=== PATIENT | male | born 1960 | race Caucasian/White ===

== ENCOUNTER → 2024-03-24 16:02 | Outpatient (REF) | payer MEDICARE, BC, SELFPAY | LOC: RAD 16:02 | PROVIDERS: ATTENDING PHYSICIAN Orthopaedic Surgery Hand Surgery | DX: S46.011A Strain of muscle(s) and tendon(s) of the rotator cuff of right shoulder, initial encounter (principal) | CPT/HCPCS: 70030 ==

== ENCOUNTER 2024-07-14 14:13 | Inpatient (IN) | payer MEDICARE, BC, SELFPAY ==
[2024-07-14] VITALS (12 sets, daily range): BP systolic 102–156; BP diastolic 67–103; BMI 28.9
[2024-07-14 15:35] LABS: Hematocrit 43.8 % (39.0-52.0); Hemoglobin 15.4 g/dL (13.0-18.0); Mean Corp Hgb Conc. 35.2 g/dL (33.0-37.0); Mean Corpuscular Hgb 32.6 pg (27.0-31.0); Mean Corpuscular Volume 92.8 fL (80.0-94.0); Mean Platelet Volume 9.6 fL (7.4-10.4); Platelet Count 264 10^3/uL (130-400); Red Blood Cell Count 4.72 10^6/uL (4.70-6.10); Red Cell Dist. Width 11.7 % (11.5-14.5); White Blood Cell Count 8.5 10^3/uL (4.8-10.8)
[2024-07-14 15:37] LABS: ALT (SGPT) 15 U/L (0-50); AST (SGOT) 30 U/L (17-59); Albumin 4.6 g/dl (3.5-5.0); Alkaline Phosphatase 106 U/L (38-126); Blood Urea Nitrogen 18 mg/dl (9-20); Calcium 9.8 mg/dl (8.4-10.2); Carbon Dioxide 24 mmol/L (22-30); Chloride 106 mmol/L (98-107); Estimated Creatinine Clearance 77 ml/min; Glucose 111 mg/dl (70-99); Potassium 4.5 mmol/L (3.5-5.1); Sodium 143 mmol/L (135-145); Total Bilirubin 0.8 mg/dl (0.2-1.3); Total Protein 7.8 g/dl (6.3-8.2); eGFR > 60.00
[2024-07-14 15:41] LABS: Erythrocyte Sed Rate 27 mm/hour (0-20)
[2024-07-14] MEDS: DILAUDID 0.5 MG IV (19:35)
[2024-07-14] MEDS: VANCOCIN 540 MG IV (19:37)
[2024-07-14] MEDS: DILAUDID 0.25 MG IV (19:55)
--- NOTE | 2024-07-14 20:30 | PTCARENOTE ---
Pt a 64 y/o M arrived from PACU at 20:30 post-op I&D R Shoulder with Cadaver Graft PMH HTN, HLD. Pt AOx3, bed in a low position, call light in reach.
[2024-07-14] MEDS: HEPARIN 5000 UNITS SC (20:50)
[2024-07-14] MEDS: SENOKOT 17.2 MG PO (20:50)
[2024-07-14] MEDS: COLACE 100 MG PO (20:50)
[2024-07-14] MEDS: ROXICODONE 10 MG PO (21:03)
[2024-07-15] MEDS: TYLENOL 650 MG PO ×7 (00:32→23:35)
[2024-07-15 03:10] VITALS: BP 110/69
[2024-07-15] MEDS: VANCOCIN 200 IV (05:52)
[2024-07-15 07:45] VITALS: BP 146/89
--- NOTE | 2024-07-15 07:47 | W.PN.UPDATE ---
Update Note
Progress Note Update
Comfortable
VSS
Dressing intact
R UE NVI
Cxs pending
ID to see ?PICC line vs oral antibx
Severe and deep infection of R shoulder with bone involvement
Continue IV Vanco for now
Will DC to home once ID plan in place
GGMD
[2024-07-15] MEDS: ROXICODONE 5 MG PO ×2 (08:27→16:28)
[2024-07-15] MEDS: CRESTOR 10 MG PO (08:28)
[2024-07-15] MEDS: TOPROL XL 25 MG PO (08:29)
[2024-07-15] MEDS: BENICAR 40 MG PO (08:29)
[2024-07-15] MEDS: HEPARIN 5000 UNITS SC ×2 (08:30→20:09)
[2024-07-15] MEDS: SENOKOT 17.2 MG PO ×2 (08:30→20:08)
[2024-07-15] MEDS: COLACE 100 MG PO ×2 (08:30→20:08)
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
[2024-07-15 10:50] LABS: Estimated Creatinine Clearance 77 ml/min
[2024-07-15 11:45] VITALS: BP 127/76
--- NOTE | 2024-07-15 11:45 | PHA.VAN.IN ---
Assessment
- Assessment
Renal Function: Unknown baseline
Maximum Temperature: 97.9 on 07/15/24 at 11:45
Minimum Temperature: 97.2 on 07/14/24 at 20:35
AUC Dosing Plan
- Dosing Variables
Dosing Weight (kg): 102.1
Dosing CrCl (ml/min): 77
Vd coefficient (L/kg): 0.7
- Empiric Dosing
Initial / Loading Dose: Vancomycin 2000mg IV x 1 dose given yesterday
Maintenance Regimen: adjust to 1250mg IV Q12hrs (original order of 1gm IV Q12 estimated AUC 424)
Estimated AUC (mcg*h/mL): 538
Estimated Peak (mcg*h/mL): 31
Estimated Trough (mcg/ml): 15
Estimated Half Life (H): 10
- Monitoring
No levels ordered at this time: Will order levels according to vancomycin dosing protocol
Pharmacokinetics Vancomycin I
- -
Patient Age: 64
Patient Sex: Male
Vancomycin Day #: 1
Indication: Skin And Soft Tissue
Requesting Provider: Dr. Abdullahi Ferrari
Pertinent Antimicrobial Allergies:
No antibiotic allergies
Height / Weight:
Height 6 ft 2 in
Actual Weight 102.058 kg
IBW in k.2
Adjusted BW in k.1
Pertinent Past Medical History: R shoulder graft repair w/cadaver graft 2 mos ago
- Vital Signs / Lab Results
Temp Pulse Resp BP Pulse Ox
97.9 F 81 16 146/89 97
07/15/24 07:45 07/15/24 08:29 07/15/24 07:45 07/15/24 08:29 07/15/24 07:45
Lab Results - Hematology
07/14/24
15:07
WBC 8.5
Lab Results - Chemistry
07/14/24 07/15/24
15:07 10:30
BUN 18
Creatinine 1.1 1.1
Estimated Creat Clear 77 77
Albumin 4.6
Microbiology Results
07/14/24 18:15 Gram Stain - Preliminary
Shoulder - Right
[2024-07-15] MEDS: ORETIC 25 MG PO (12:17)
[2024-07-15 15:33] VITALS: BP 125/77
[2024-07-15] MEDS: VANCOCIN 275 MG IV (17:56)
[2024-07-15 19:05] VITALS: BP 115/72
[2024-07-15] MEDS: LOPRESSOR 50 MG PO (20:13)
[2024-07-15 23:00] VITALS: BP 118/74
[2024-07-16] MEDS: TYLENOL 650 MG PO ×2 (04:44→08:49)
[2024-07-16 06:20] LABS: Vancomycin Trough 10.7 ug/ml (5-20)
[2024-07-16] MEDS: VANCOCIN 275 MG IV (06:47)
[2024-07-16 08:10] VITALS: BP 114/74
[2024-07-16] MEDS: LOPRESSOR 50 MG PO (08:45)
[2024-07-16] MEDS: CRESTOR 10 MG PO (08:49)
[2024-07-16] MEDS: COLACE 100 MG PO (08:49)
[2024-07-16] MEDS: HEPARIN 5000 UNITS SC (08:49)
[2024-07-16] MEDS: BENICAR 40 MG PO (08:49)
[2024-07-16] MEDS: SENOKOT 17.2 MG PO (08:49)
[2024-07-16] MEDS: ORETIC 25 MG PO (08:50)
--- NOTE | 2024-07-16 09:30 | W.PN.UPDATE ---
Update Note
Progress Note Update
Comfortable
VSS
Only elevated ESR/CRxP neg and NL WBC count
Dressing D and I
R UE NVI
Cultures from office and here at are negative
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
The next step for this patient is most likely a reverse Total shoulder replacement
However, we must absolutely be sure there is no infection present prior to the surgery
ID to see and determine future course of antibx tx
I would prefer if possible at least a 4-6 week course of antibx (perhaps oral as easier for pt)---then we can reevaluate at that time for possible future surgery
DC planned for today if OK with ID service
thanks
GGMD
--- NOTE | 2024-07-16 10:08 | W.PN.ID1 ---
Date of Service
Date of Service: July 16, 2024
Today's Communication
Recommend empiric doxycycline 100mg po bid x 6 weeks.
Assessment / Plan
R shoulder joint infection vs cadaver graft rejection post rotator cuff repair with cadaver graft
-07/08/2024 outpt drainage cx before abx aerobic and anaerobic cx negative. Fungal and AFB cx's neg to date.
-07/14/2024 s/p I+D, cadaver graft removed.
- OR cx negative to date.
- Discussed with Dr. Ferrari today who suspects graft rejection but prefers to send him home on 6 weeks of po abx.
Per pt, the shoulder erythema and drainage resolved when he was placed on short course of antibiotic (3 days) after outpatient drain swabbed for culture. Per Dr. Ferrari, the abx was Bactrim.
-Recommend dc home on empiric doxycycline 100mg po bid x 6 weeks.
Chief Complaint
-: Cellulitis
Subjective / Review of Systems
Some post-op discomfort.
Vital Signs / Physical Exam
Vital Signs
Vital Signs
Temp Pulse Resp BP Pulse Ox
97.3 F 73 16 125/80 100
07/16/24 08:10 07/16/24 08:50 07/16/24 08:10 07/16/24 08:50 07/16/24 08:10
Physical Exam
Constitutional: No Acute Distress and Comfortable
Cardiovascular: Regular Rate and S1/S2
Pulmonary: Clear
Gastrointestinal: Soft, Non Tender, Non Distended and Normal Bowel Sounds
Genito-Urinary: Negative CVA Tenderness
Extremities: Negative Edema
Wound: Other (Right shoulder: dressing mild blood strike through)
Neurological: AO x 3
Objective Data
Lab Data
Lab Results
07/14/24 15:07
07/15/24 10:30
ESR 27 mm/hour (0-20) H 07/14/24 15:07
Estimated Creat Clear 77 ml/min 07/15/24 10:30
Total Bilirubin 0.8 mg/dl (0.2-1.3) 07/14/24 15:07
AST 30 U/L (17-59) 07/14/24 15:07
ALT 15 U/L (0-50) 07/14/24 15:07
Alkaline Phosphatase 106 U/L (38-126) 07/14/24 15:07
C-Reactive Protein 8.20 mg/L (0.0-10.00) 07/14/24 15:07
Most recent labs reviewed.
Micro Results:
07/14/24 18:15 Wound Culture - Preliminary
Shoulder - Right No growth
Gram Stain - Preliminary
07/14/24 18:15 Anaerobic Culture - Preliminary
Shoulder - Right Culture pending. Anaerobic cultures are examined after 3
days incubation. Additional information to follow.
Care Review
Plan reviewed with: Physician (Dr. Ferrari)
--- NOTE | 2024-07-16 10:18 | PHA.VAN.FU ---
Vancomycin Assessment / Plan
- Assessment
Renal Function: No New Labs Today
In the past 24 hrs, patient has been: Afebrile
- Dosing Plan
Continue: Vancomycin 1250 mg q12h - first dose 07/15 1800
- Monitoring Plan
No level(s) ordered at this time: pt for possible discharge today - will order levels tomorrow if still here
- Follow Up
Pharmacy will continue to follow.
Vancomycin Follow UP
- -
Patient Age: 64
Patient Sex: Male
Vancomycin Day #: 2
Indication: Skin And Soft Tissue
Requesting Provider: Dr. Abdullahi Ferrari
Pertinent Antimicrobial Allergies:
No antibiotic allergies
Height / Weight:
Height 6 ft 2 in
Actual Weight 102.058 kg
IBW in k.2
Adjusted BW in k.1
Pertinent Past Medical History: R shoulder graft repair w/cadaver graft 2 mos ago
- Vital Signs / Lab Results
Temp Pulse Resp BP Pulse Ox
97.3 F 73 16 125/80 100
07/16/24 08:10 07/16/24 08:50 07/16/24 08:10 07/16/24 08:50 07/16/24 08:10
Lab Results - Hematology
07/14/24
15:07
WBC 8.5
Lab Results - Chemistry
07/14/24 07/15/24
15:07 10:30
BUN 18
Creatinine 1.1 1.1
Estimated Creat Clear 77 77
Albumin 4.6
Microbiology Results
07/14/24 18:15 Wound Culture - Preliminary
Shoulder - Right No growth
Gram Stain - Preliminary
07/14/24 18:15 Anaerobic Culture - Preliminary
Shoulder - Right Culture pending. Anaerobic cultures are examined after 3
days incubation. Additional information to follow.
Therapeutic Drug Monitoring
Vancomycin Trough 10.7 ug/ml (5-20) 07/16/24 05:52
--- NOTE | 2024-07-16 10:38 | CM ---
CM following re: d/c planning.
CM met with pt at bedside.
Pt resides with brother at home.
He reports he is independent with mobility and ADLs.
No DME or VN in the home.
PCP is Dr. Major and pharmacy [facility] or [facility].
ID on board, pt transitioning to PO abx, no d/c needs at this time.
Pt has transportation to get home today.
--- NOTE | 2024-07-16 11:47 | PTCARENOTE ---
Spoke to Dr. Ferrari regarding whether or not patient needs OT and PT tx before discharge. Dr. Ferrari said patient does not need before discharge. Dr. Ferrari also said that it was ok for patient to drive himself home.
== END 2024-07-16 12:00 | disposition home or self-care (01) | DRG 496 ==
LOC: 2 SOUTH 14:13
PROVIDERS: ADMITTING PHYSICIAN Orthopaedic Surgery Hand Surgery; CONSULT PHYSICIAN Internal Medicine Infectious Disease
PROC: 0LP Tendons, Removal (ICD-10-PCS; 2024-07-14)
PROC: 0PPC04Z Removal of Internal Fixation Device from Right Humeral Head, Open Approach (ICD-10-PCS; 2024-07-14)
DX: T84.7XXA Infection and inflammatory reaction due to other internal orthopedic prosthetic devices, implants and grafts, initial encounter (principal); T86.890 Other transplanted tissue rejection; I10 Essential (primary) hypertension; E78.00 Pure hypercholesterolemia, unspecified; F17.200 Nicotine dependence, unspecified, uncomplicated; Z79.899 Other long term (current) drug therapy; Y79.2 Prosthetic and other implants, materials and accessory orthopedic devices associated with adverse incidents; Y92.89 Other specified places as the place of occurrence of the external cause
CPT/HCPCS: 80053; 80202; 82565; 85027; 85652; 86140; 87070; 87075; 87205